=== PATIENT | female | born 1950 | race Caucasian/White ===

== ENCOUNTER 2018-09-29 21:16 | Outpatient (REF) | payer MEDICARE, SELFPAY ==
[2018-09-29 22:04] LABS: COMMENT (LAB VIEW ONLY) 77.66 mg/dL
[2018-09-29 22:12] LABS: Anion Gap 8.7 mmol/L (3-11); BUN 19 mg/dL (7-18); CO2 30.3 mmol/L (21.0-32.0); Calcium 9.2 mg/dL (8.5-10.1); Chloride 103 mmol/L (98-107); Cholesterol 298 mg/dL (50-200); Glucose 121 mg/dL (70-100); HDL Cholesterol 40 mg/dL (40-60); LDL CHOLESTEROL 230 mg/dL (<100); Potassium 4.1 mmol/L (3.5-5.1); Sodium 142 mmol/L (136-145); TSH 3.14 uIU/mL (0.358-3.74); Triglyceride 175 mg/dL (30-150)
== END 2018-09-29 21:36 ==
LOC: NCHCN 21:16
PROVIDERS: PCP Internal Medicine; Visit Provider Internal Medicine
DX: E11.9 Type 2 diabetes mellitus without complications (principal); E03.9 Hypothyroidism, unspecified; F17.200 Nicotine dependence, unspecified, uncomplicated
CPT/HCPCS: 80048; 80061; 83721; 82043; 82570; 84443

== ENCOUNTER 2019-01-16 07:58 | Outpatient (REF) | payer MEDICARE, SELFPAY ==
[2019-01-16 20:52] LABS: Anion Gap 10.5 mmol/L (3-11); BUN 21 mg/dL (7-18); CO2 33.5 mmol/L (21.0-32.0); CREATININE 0.92 mg/dL (0.55-1.02); Chloride 95 mmol/L (98-107); Glucose 229 mg/dL (70-100); Sodium 139 mmol/L (136-145)
[2019-01-16 21:20] LABS: COMMENT (LAB VIEW ONLY) 196.26 mg/dL
[2019-01-16 21:23] LABS: Potassium 2.9 mmol/L (3.5-5.1)
== END 2019-01-16 08:18 ==
LOC: NCHCN 07:58
PROVIDERS: PCP Internal Medicine; Visit Provider Internal Medicine
DX: I10 Essential (primary) hypertension (principal); E11.9 Type 2 diabetes mellitus without complications
CPT/HCPCS: 80048; 82043; 82570

== ENCOUNTER 2019-02-02 13:25 | Outpatient (REF) | payer MEDICARE, SELFPAY ==
[2019-02-02 21:41] LABS: Anion Gap 8.2 mmol/L (3-11); BUN 18 mg/dL (7-18); CO2 31.8 mmol/L (21.0-32.0); CREATININE 0.84 mg/dL (0.55-1.02); Calcium 9.4 mg/dL (8.5-10.1); Chloride 96 mmol/L (98-107); Glucose 229 mg/dL (70-100); Potassium 3.5 mmol/L (3.5-5.1); Sodium 136 mmol/L (136-145)
== END 2019-02-02 13:45 ==
LOC: NCHCN 13:25
PROVIDERS: PCP Internal Medicine; Visit Provider Internal Medicine
DX: I10 Essential (primary) hypertension (principal); E87.6 Hypokalemia
CPT/HCPCS: 80048

== ENCOUNTER 2019-03-02 10:33 | Outpatient (REF) | payer MEDICARE, SELFPAY ==
[2019-03-02 21:18] LABS: Anion Gap 12.1 mmol/L (3-11); BUN 15 mg/dL (7-18); CO2 29.9 mmol/L (21.0-32.0); CREATININE 0.98 mg/dL (0.55-1.02); Calcium 9.8 mg/dL (8.5-10.1); Chloride 97 mmol/L (98-107); Estimated GFR 56.27 (mL/min/1.73m2); Glucose 142 mg/dL (70-100); Potassium 4.2 mmol/L (3.5-5.1); Sodium 139 mmol/L (136-145)
== END 2019-03-02 10:53 ==
LOC: NCHCN 10:33
PROVIDERS: PCP Internal Medicine; Visit Provider Internal Medicine
DX: E87.6 Hypokalemia (principal); I10 Essential (primary) hypertension
CPT/HCPCS: 80048

== ENCOUNTER 2020-12-06 10:15 | Outpatient (CLI) | payer MEDICARE, MEDICAID, SELFPAY ==
--- NOTE | 2020-12-06 06:00 | DI.RAD_ITS ---
EXAM: XR PAIN CLINIC CERVICAL SP 2V CLINICAL HISTORY: Dx: Cervical Radiculopathy TECHNIQUE: 2D and realtime digital imaging was performed. COMPARISON: MR MR C SPINE WO CONTRAST from 02/09/2019 FINDINGS: C-arm fluoroscopy was utilized by Dr. Man during reported epidural injection. Hard copy shows needle placement in the midline at what appears to be the T1 level. Plate and screw fixation and anterior c ervical fusion noted. Fluoro time, 39.6 seconds. IMPRESSION: RADIATION DOSE DELIVERED: Total DLP
[2020-12-06 10:36] VITALS: BP 137/76; PULSE 71; RESP 18; TEMP 36.7; O2SAT 98
--- NOTE | 2020-12-06 11:13 | PDOC.PAIN_ITS ---
Pain Clinic Procedure Note Procedure Note Procedure Note: Cervical Epidural Steroid Injection Pre-operative diagnosis: cervical radiculopathy Post-operative diagnosis: same as above ALESSIO OLIVER has been referred to the [facility] for interlaminar cervical epidural steroid injection. COMMENTS: patient is status post previous C5-C7 ACDF in 1994, she has predominantly right upper extremity pain. Of note, she is also status post right ulnar nerve transposition surgery. She had previously been evaluated by Dr Sandoval in [facility] center for pain and spine, and after obtaining MRI C spine and NCS/EMG, she has suspected right C6 radiculitis, she is referred to [facility] for a course of RASHDI for symptomatic relief. She was seen by Ms Nichelle Grey APRN in clinic. Patient has a listed allergy to iodine, upon clarification, she develops red spots on her skin when she takes dietary iodine, no prior history of contrast dye allergy. she reports she received contrast with MRI and CTs in the past without issue. Patient was interviewed and the medical record reviewed. There were no medical, pharmacologic, radiographic or other structural contraindications to attempting fluoroscopically guided epidural steroid injection. Risks and expected side effects as well as potential benefit of the procedure were reviewed and voiced concerns addressed. The printed consent form was signed and witnessed. Standard time-out procedure was performed. The patient was placed in the prone position on the fluoroscopy table and automated blood pressure cuff and pulse oximeter applied. due to prior C5-C7 ACDF, C7-T1 interlaminar space was not well visualized and the skin entry point for entering the epidural space by a midline T1-T2 interlaminar approach was identified under fluoroscopy and marked. Following thorough Chlorhexadine preparation of the skin and draping and 1% lidocaine infiltration of the skin entry point and subcutaneous tissues, an 17 gauge Tuohy needle was placed under fluoroscopic guidance and with loss of resistance technique into the epidural space. Upon needle placement and loss of resistance there were no paresthesiae or return of blood or CSF through the needle. 0.5cc of Omnipaque 240 were injected with clear epidural spread in the A/P, oblique views. A radio-opaque 19G catheter was threaded to C5-C6 level, then 10mg of preservative-free Dexamethasone (1cc) was injected through the needle with no unusual discomfort expressed. The needle was removed without difficulty. A bandage was placed. Vital signs were stable throughout the procedure and were as recorded in the docflowsheet by the nursing staff. If given, dosages of intravenous drugs for anxiolysis and analgesia were documented in MAR. Follow up plans and appointments were discussed. Post procedure instruction was given as documented in nursing documentation and having met discharge criteria and was discharged from the [facility]. COMMENTS: patient received 0.5mg of IV Versed for this procedure. I performed the entire procedure. Marybel Man MD Pain Management CC: Alisia Martinez
[2020-12-06] MEDS: Lactated Ringers 1,000 ML 80 ML IV (11:35)
[2020-12-06] MEDS: Midazolam 2 MG/2 ML VIAL IVP (11:53)
[2020-12-06] MEDS: Omnipaque 240 MG/ML 50 ML BTL IJ (12:10)
[2020-12-06] MEDS: Dexamethasone Sod. Phos./Pres-Free 10 MG/ML VIAL IJ (12:10)
[2020-12-06 12:14] VITALS: BP 155/78; PULSE 78; RESP 20; O2SAT 100
== END 2020-12-06 10:16 | disposition home or self-care (01) ==
LOC: PC 10:17
PROVIDERS: PCP Internal Medicine; Visit Provider Internal Medicine
DX: M54.12 Radiculopathy, cervical region (principal)
CPT/HCPCS: 62321; 72040; J2250; Q9967